=== PATIENT | female | born 1935 | race Caucasian/White ===

== ENCOUNTER 2016-10-06 11:31 | Inpatient (IN) | payer SELFPAY ==
[~2016-10-06] VITALS: Ht 152.4 cm; Wt 46.0 kg
[2016-10-06 12:39] LABS: microscopic required? YES; urine erythrocyte TRACE (NEGATIVE)
[2016-10-06 12:44] LABS: BASOPHIL % 0.3 % (0-2); RED CELL DISTRIBUTION WIDTH 13.8 % (11.5-14.5)
[2016-10-06 12:48] LABS: PLATELET COUNT 554 x10^3mcL (130-400)
[2016-10-06 12:55] LABS: CHLORIDE SERUM 90 mmol/L (98-107); CREATININE SERUM 1.3 mg/dL (0.6-1.0); GLUCOSE SERUM 121 mg/dL (74-106); POTASSIUM SERUM 3.9 mmol/L (3.5-5.1); SODIUM SERUM 125 mmol/L (136-145)
[2016-10-06 13:06] LABS: ALKALINE PHOSPHATASE 161 U/L (46-116); ALT/SGPT 78 U/L (14-59); AST/SGOT 61 U/L (15-37); BILIRUBIN TOTAL 0.52 mg/dL (0.20-1.00); TOTAL PROTEIN, SERUM 7.9 g/dL (6.4-8.2)
[2016-10-06 13:07] LABS: ALBUMIN 2.5 g/dL (3.4-5.0)
[2016-10-06 13:13] LABS: C REACTIVE PROTEIN 23.8 mg/dL (<=0.9)
[2016-10-06 13:58] LABS: ERYTHROCYTE SED RATE 100 mm/hr (0-30)
[2016-10-06 15:46] LABS: FREE T4 1.36 ng/dL (0.76-1.46)
[2016-10-06] MEDS ORDERED: LOSARTAN POTASS1 TAB PO (16:47)
[2016-10-06 19:39] LABS: MAGNESIUM 2.3 mg/dL (1.8-2.4); PHOSPHOROUS 3.8 mg/dL (2.5-4.9)
[2016-10-06 19:46] VITALS: BP 129/69
[2016-10-06 20:37] LABS: AMPHETAMINE QUAL UR NONE DETECTED (NEG <=1000)
[2016-10-06 23:17] VITALS: BP 113/51
[2016-10-07 00:35] VITALS: BP 131/51
[2016-10-07 04:30] LABS: RED CELL DISTRIBUTION WIDTH 14.1 % (11.5-14.5)
[2016-10-07 04:33] LABS: BASOPHIL % 0 % (0-2); PLATELET COUNT 460 x10^3mcL (130-400)
[2016-10-07 04:42] LABS: CALCIUM 8.1 mg/dL (8.5-10.1); CARBON DIOXIDE 23.9 mmol/L (21-32); CHLORIDE SERUM 98 mmol/L (98-107); CREATININE SERUM 1.4 mg/dL (0.6-1.0); GLUCOSE SERUM 118 mg/dL (74-106); POTASSIUM SERUM 4.1 mmol/L (3.5-5.1); SODIUM SERUM 130 mmol/L (136-145)
[2016-10-07 04:46] VITALS: BP 114/57
[2016-10-07 10:07] VITALS: BP 105/57
[2016-10-07 13:41] VITALS: BP 94/47
[2016-10-07 14:46] LABS: T3 TOTAL 0.73 ng/mL
[2016-10-07 17:21] VITALS: BP 197/57; BP 97/57
[2016-10-07 21:56] VITALS: BP 102/53
[2016-10-08 05:51] VITALS: BP 97/55
[2016-10-08 06:29] LABS: CALCIUM 8.4 mg/dL (8.5-10.1); CARBON DIOXIDE 25.5 mmol/L (21-32); CHLORIDE SERUM 96 mmol/L (98-107); CREATININE SERUM 1.4 mg/dL (0.6-1.0); GLUCOSE SERUM 128 mg/dL (74-106); MAGNESIUM 1.9 mg/dL (1.8-2.4); PHOSPHOROUS 2.7 mg/dL (2.5-4.9); POTASSIUM SERUM 4.2 mmol/L (3.5-5.1); SODIUM SERUM 131 mmol/L (136-145)
[2016-10-08 06:48] LABS: RED CELL DISTRIBUTION WIDTH 14.1 % (11.5-14.5)
[2016-10-08 06:53] LABS: PLATELET COUNT 428 x10^3mcL (130-400)
[2016-10-08 08:43] LABS: BAND NEUTROPHIL 3 % (0-10); BASOPHIL 0 % (0-2); MONOCYTE 7 % (0-7); SEGMENTED NEUTROPHILS 83 % (37-75)
[2016-10-08 08:44] LABS: PLATELET MORPHOLOGY PLATELETS NORMAL; rbc morphology (normal/abnorm) ABNORMAL (NORMAL)
[2016-10-08 11:15] VITALS: BP 102/48
[2016-10-08 21:40] VITALS: BP 116/60
[2016-10-09 05:58] VITALS: BP 11/54
[2016-10-09 06:40] LABS: CALCIUM 8.4 mg/dL (8.5-10.1); CARBON DIOXIDE 23.4 mmol/L (21-32); CHLORIDE SERUM 96 mmol/L (98-107); CREATININE SERUM 1.2 mg/dL (0.6-1.0); GLUCOSE SERUM 112 mg/dL (74-106); MAGNESIUM 1.8 mg/dL (1.8-2.4); PHOSPHOROUS 3.6 mg/dL (2.5-4.9); POTASSIUM SERUM 4.2 mmol/L (3.5-5.1); SODIUM SERUM 131 mmol/L (136-145)
[2016-10-09 06:43] LABS: PLATELET COUNT 373 x10^3mcL (130-400)
[2016-10-09 08:17] VITALS: BP 99/60
[2016-10-09 09:09] LABS: BAND NEUTROPHIL 1 % (0-10); MONOCYTE 6 % (0-7); SEGMENTED NEUTROPHILS 89 % (37-75); rbc morphology (normal/abnorm) ABNORMAL (NORMAL)
[2016-10-09 09:32] VITALS: BP 134/61
[2016-10-09 17:23] VITALS: BP 137/69
[2016-10-09 21:50] VITALS: BP 108/61
[2016-10-10 06:31] LABS: BASOPHIL % 0.3 % (0-2); RED CELL DISTRIBUTION WIDTH 13.9 % (11.5-14.5)
[2016-10-10 06:53] LABS: CALCIUM 8.4 mg/dL (8.5-10.1); CHLORIDE SERUM 95 mmol/L (98-107); CREATININE SERUM 1.3 mg/dL (0.6-1.0); GLUCOSE SERUM 98 mg/dL (74-106); SODIUM SERUM 128 mmol/L (136-145)
[2016-10-10 07:00] LABS: PLATELET COUNT 402 x10^3mcL (130-400)
[2016-10-10 09:50] VITALS: BP 113/69
[2016-10-10] MEDS ORDERED: LOSARTAN POTASS1 TAB PO (11:41)
[2016-10-10] MEDS ORDERED: COL100 PO (11:44)
[2016-10-10 12:34] VITALS: BP 113/69
[2016-10-10] MEDS ORDERED: IBUPROFEN600 MG PO (12:57)
[2016-10-10] MEDS ORDERED: NORCO1 TA1 PO (12:57)
[2016-10-10] MEDS ORDERED: FERROUS SULFAT325 M2 PO (13:04)
[2016-10-10] MEDS ORDERED: PHARMASSURE VI500 MG PO (13:04)
[2016-10-10] MEDS ORDERED: MAC100 PO (13:40)
[2016-10-10] MEDS ORDERED: LAC PO (13:40)
[2016-10-10 13:55] VITALS: BP 113/69
== END 2016-10-10 16:05 | disposition home or self-care (01) | DRG 417 ==
LOC: ED 11:31 → MU 18:15 → DU 18:15 → MU 10-08 08:37
PROVIDERS: Specialist; Surgery; ADMIT Family Medicine
PROC: 0FT44ZZ Resection of Gallbladder, Percutaneous Endoscopic Approach (ICD-10-PCS; principal; 2016-10-08 08:30)
DX: K80.10 Calculus of gallbladder with chronic cholecystitis without obstruction (principal); N17.0 Acute kidney failure with tubular necrosis; E43 Unspecified severe protein-calorie malnutrition; N39.0 Urinary tract infection, site not specified; E87.1 Hypo-osmolality and hyponatremia; Z68.1 Body mass index [BMI] 19.9 or less, adult; I27.2 Other secondary pulmonary hypertension; D72.829 Elevated white blood cell count, unspecified; R73.03 Prediabetes; I10 Essential (primary) hypertension; R80.9 Proteinuria, unspecified; D64.9 Anemia, unspecified; M94.0 Chondrocostal junction syndrome [Tietze]; E83.51 Hypocalcemia; K57.90 Diverticulosis of intestine, part unspecified, without perforation or abscess without bleeding; K42.9 Umbilical hernia without obstruction or gangrene; Z87.81 Personal history of (healed) traumatic fracture
CPT/HCPCS: 36600; 83880; 84439; 94150; J0330; J0696; J1644; J1885; J2175; J2250; J2405; J2543; J2704; J2710; J3010; J3490; J7030; J7120; Q0092

== ENCOUNTER 2016-11-13 11:47 | Emergency (ER) | payer SELFPAY ==
[~2016-11-13 11:47] MED LIST: COL100 PO; FERROUS SULFAT325 M2 PO; IBUPROFEN600 MG PO; LAC PO; LOSARTAN POTASS1 TAB PO; MAC100 PO; NORCO1 TA1 PO; PHARMASSURE VI500 MG PO
[2016-11-13 13:40] LABS: BASOPHIL % 0.3 % (0-2)
[2016-11-13 13:41] LABS: PLATELET COUNT 697 x10^3mcL (130-400); RED CELL DISTRIBUTION WIDTH 15.5 % (11.5-14.5)
[2016-11-13 13:52] LABS: ALKALINE PHOSPHATASE 213 U/L (46-116); ALT/SGPT 39 U/L (14-59); AST/SGOT 47 U/L (15-37); BILIRUBIN TOTAL 0.3 mg/dL (0.20-1.00); CALCIUM 8.9 mg/dL (8.5-10.1); CARBON DIOXIDE 25.9 mmol/L (21-32); CHLORIDE SERUM 82 mmol/L (98-107); CREATININE SERUM 2.7 mg/dL (0.6-1.0); GLUCOSE SERUM 104 mg/dL (74-106); POTASSIUM SERUM 3.4 mmol/L (3.5-5.1); TOTAL PROTEIN, SERUM 8.1 g/dL (6.4-8.2)
[2016-11-13 13:54] LABS: ALBUMIN 2.2 g/dL (3.4-5.0); SODIUM SERUM 117 mmol/L (136-145)
[2016-11-13 16:30] VITALS: BP 144/82
== END 2016-11-13 16:30 | disposition short-term general hospital (02) ==
LOC: ED 11:47
DX: E87.1 Hypo-osmolality and hyponatremia (principal); D64.9 Anemia, unspecified; I21.4 Non-ST elevation (NSTEMI) myocardial infarction; K92.2 Gastrointestinal hemorrhage, unspecified
CPT/HCPCS: 83880; J7030